=== PATIENT | male | born 1940 | race Caucasian/White ===

== ENCOUNTER 2016-12-18 04:24 | Emergency (ER) | payer MEDICARE, OTHER | END 2016-12-18 07:45 | disposition critical access hospital (66) | LOC: ER 04:24 | DX: I11.0 Hypertensive heart disease with heart failure (principal); I50.9 Heart failure, unspecified; E11.9 Type 2 diabetes mellitus without complications; I48.91 Unspecified atrial fibrillation; E78.00 Pure hypercholesterolemia, unspecified; Z79.899 Other long term (current) drug therapy; Z79.82 Long term (current) use of aspirin | CPT/HCPCS: 36415; 96374 ==

== ENCOUNTER 2017-01-17 09:52 | Inpatient (IN) | payer MEDICARE, OTHER ==
[~2017-01-17] VITALS: Ht 180.3 cm; Wt 105.8 kg
== END 2017-01-22 12:48 | disposition short-term general hospital (02) | DRG 638 ==
LOC: ER 09:52 → MED 14:48
PROVIDERS: ADMIT Internal Medicine
PROC: 0W9G3ZZ Drainage of Peritoneal Cavity, Percutaneous Approach (ICD-10-PCS; principal; 2017-01-19)
PROC: 0W9G3ZZ Drainage of Peritoneal Cavity, Percutaneous Approach (ICD-10-PCS; 2017-01-21)
DX: E09.649 Drug or chemical induced diabetes mellitus with hypoglycemia without coma (principal); I13.0 Hypertensive heart and chronic kidney disease with heart failure and stage 1 through stage 4 chronic kidney disease, or unspecified chronic kidney disease; R18.8 Other ascites; I47.2 Ventricular tachycardia; I50.22 Chronic systolic (congestive) heart failure; I42.0 Dilated cardiomyopathy; T38.3X5A Adverse effect of insulin and oral hypoglycemic [antidiabetic] drugs, initial encounter; I48.91 Unspecified atrial fibrillation; Z79.01 Long term (current) use of anticoagulants; E78.5 Hyperlipidemia, unspecified; Z85.72 Personal history of non-Hodgkin lymphomas; Z90.49 Acquired absence of other specified parts of digestive tract; N18.9 Chronic kidney disease, unspecified; Z79.4 Long term (current) use of insulin; Z79.84 Long term (current) use of oral hypoglycemic drugs; Z96.641 Presence of right artificial hip joint; Z79.899 Other long term (current) drug therapy; Z87.891 Personal history of nicotine dependence; I08.1 Rheumatic disorders of both mitral and tricuspid valves; K74.60 Unspecified cirrhosis of liver; E66.9 Obesity, unspecified; Z68.35 Body mass index [BMI] 35.0-35.9, adult; N17.9 Acute kidney failure, unspecified
CPT/HCPCS: 36415; 49083; 87507; 97162-GP; 97166; J0696

== ENCOUNTER 2017-02-08 18:02 | Inpatient (IN) | payer MEDICARE, OTHER ==
[~2017-02-08] VITALS: Ht 180.3 cm; Wt 101.6 kg
--- NOTE | 2017-02-09 10:39 | NUR ---
09 AIRPLANE INSPECTOR REPORTS SHE THINKS PATIENT IS IN TORSADES OR HAVING A RUN OF VTACH. FAXED TELE READING WITH STRIP TO DR EARLY OFFICE AT THIS TIME. PATIENT DENIES ANY PROBLEMS OR COMPLAINTS AT THIS TIME. MD NOVAK AT HIS BEDSIDE AT THIS TIME. 914 MD YUAN CALLED AND REPORTED HE RECEIVED TELE FAX AND THOUGHT IT WAS AFIB. NO NEW ORDERS AT THIS TIME
--- NOTE | 2017-02-09 22:18 | NUR ---
1939- DRESSING ON LEFT FOREARM CHANGED AT THIS TIME PER MD ORDER. EXISTING TEGAMDERM REMOVED. TELFA APPLIED AND COVERED WITH KERLEX. PT TOLERATED WELL.
--- NOTE | 2017-02-10 15:08 | NUR ---
REPORT GIVEN TO MARBIN CROUCH TO TAKE OVER CARE OF PATIENT
--- NOTE | 2017-02-10 15:51 | NUR ---
1515- RECEIVED REPORT ON PATIENT FROM Kevin REYNOLDS RN.
--- NOTE | 2017-02-11 16:39 | NUR ---
1600 PT HEARED CALLING FOR HELP FROM BATHROOM. UPON ARRIVAL TO ROOM PT WAS ON HIS KNEES IN THE BATHROOM. HE STATES THAT HE DID NOT FALL BUT LOWERED HIMSELF DOWN TO THE FLOOR AFTER FEELING WEAK. PT HAD SOME AFIB WITH RVR AT THIS TIME. NOTIFIED AND ORDERS WERE RECIEVED. NO SANDOVAL OR INJURY TO KNEES NOTED AT THIS TIME. WILL CONTINUE TO MONITOR PT. BED ALARM IS ON AND PT ADVISED NOT TO GET OUT OF BED WITHOUT HELP.
== END 2017-02-12 14:30 | disposition short-term general hospital (02) | DRG 308 ==
LOC: ER 18:02 → MED 21:53
PROVIDERS: ADMIT Internal Medicine
DX: I47.2 Ventricular tachycardia (principal); I62.01 Nontraumatic acute subdural hemorrhage; I62.03 Nontraumatic chronic subdural hemorrhage; I13.0 Hypertensive heart and chronic kidney disease with heart failure and stage 1 through stage 4 chronic kidney disease, or unspecified chronic kidney disease; I50.22 Chronic systolic (congestive) heart failure; R18.8 Other ascites; I42.9 Cardiomyopathy, unspecified; I25.10 Atherosclerotic heart disease of native coronary artery without angina pectoris; Z95.5 Presence of coronary angioplasty implant and graft; N18.9 Chronic kidney disease, unspecified; E11.22 Type 2 diabetes mellitus with diabetic chronic kidney disease; E11.649 Type 2 diabetes mellitus with hypoglycemia without coma; Z79.4 Long term (current) use of insulin; Z79.84 Long term (current) use of oral hypoglycemic drugs; Z79.02 Long term (current) use of antithrombotics/antiplatelets; Z79.01 Long term (current) use of anticoagulants; Z79.82 Long term (current) use of aspirin; Z79.899 Other long term (current) drug therapy; Z85.72 Personal history of non-Hodgkin lymphomas; Z86.010 Personal history of colon polyps; E78.5 Hyperlipidemia, unspecified; N40.0 Benign prostatic hyperplasia without lower urinary tract symptoms; G47.30 Sleep apnea, unspecified; T45.1X5A Adverse effect of antineoplastic and immunosuppressive drugs, initial encounter; Z90.49 Acquired absence of other specified parts of digestive tract; M51.36 Other intervertebral disc degeneration, lumbar region; Z87.891 Personal history of nicotine dependence; Z96.641 Presence of right artificial hip joint; Z96.651 Presence of right artificial knee joint; I48.2 Chronic atrial fibrillation; K74.60 Unspecified cirrhosis of liver; E66.9 Obesity, unspecified; Z68.32 Body mass index [BMI] 32.0-32.9, adult
CPT/HCPCS: 36415; C9132

== ENCOUNTER 2017-02-08 18:02 | Emergency (ER) | payer MEDICARE, OTHER | END 2017-02-08 21:52 | disposition critical access hospital (66) | LOC: ER 18:02 | DX: K92.2 Gastrointestinal hemorrhage, unspecified (principal); R55 Syncope and collapse; I25.2 Old myocardial infarction; I48.91 Unspecified atrial fibrillation; E11.9 Type 2 diabetes mellitus without complications; I10 Essential (primary) hypertension ==